=== PATIENT | male | born 1955 | race Caucasian/White ===

== ENCOUNTER 2021-12-22 20:32 | Observation (INO) ==
[2021-12-22 20:52] VITALS: BMI 15.6
--- NOTE | 2021-12-22 21:06 | ED.PDOC ---
General ED Provider: Dr. RADHA RIBEIRO Chief Complaint: Non-specific Complaint Stated Complaint: Extremely poor historian. Patient just at [facility] and released today after a mild stroke ?? Reportedly, was supposed to be admitted to a local halfway, but they would not take him because when admitted to [facility] he had meth on his UDS. ??? Need records from [facility]. Time Seen by Provider: 12/22/21 20:50 Mode of Arrival: Ambulance Information Source: Patient Exam Limitations: No limitations Nursing and Triage Documentation Reviewed and Agree: Yes Does patient meet sepsis criteria?: No System Inflammatory Response Syndrome: Not Applicable Sepsis Protocol: For patient's 13 years and over: Temp is 96.8 and below OR 101 and greater Pulse >90 BPM Resp >20/minute Acutely Altered Mental Status Are patient's symptoms suggestive of a new infection, such as: -Pneumonia -Skin, Soft Tissue -Endocarditis -UTI -Bone, Joint Infection -Implantable Device -Acute Abdominal Infection -Wound Infection -Meningitis -Blood Stream Catheter Infection -Unknown Review of Systems Review Of Systems Constitutional: Reports Weakness Eyes: Reports No symptoms Ears, Nose, Mouth, Throat: Reports No symptoms Respiratory: Reports No symptoms Cardiac: Reports No symptoms GI: Reports No symptoms : Reports No symptoms Musculoskeletal: Reports No symptoms Skin: Reports No symptoms Neurological: Reports No symptoms Endocrine: Reports No symptoms Hematologic/Lymphatic: Reports No symptoms All Other Systems: Reviewed and Negative [facility] Family History (Updated 12/23/21 @ 00:07 by RENETTA BELLE RN) Mother Diabetes BROTHER Cancer Social History (Updated 12/23/21 @ 00:11 by RENETTA BELLE RN) Smoking and tobacco status: Current every day smoker Tobacco: How many years used: 60 (SMOKES A PACK EVERY OTHER DAY) Surgical History (Updated 12/23/21 @ 00:05 by RENETTA BELLE RN) History of hip replacement Physical Exam Physical Exam Appearance: Reports Well-appearing Ill-appearing: None Pain Distress: None Eyes: Reports ALFONZO ENT: Reports Oropharynx normal Neck: Supple Respiratory: Reports Airway patent and Breath sounds clear Cardiovascular: Reports RRR and Pulses normal GI/: Reports Soft and Nontender Musculoskeletal: Reports Limited ROM and Limited strength Skin: Reports Warm and Dry Neurological: Reports Sensation intact, Motor intact and Alert Psychiatric: Reports Affect appropriate and Mood appropriate Interpretation Radiology Interpretation Xray Comments: defer pending reports from [facility] EKG Interpretation Time of EKG #1: 22:36 Rate: Normal Rhythm: Sinus Ectopy: None [place]: NL ST Segment: Other Interpretation: NSSTW changes Critical Care Note Critical Care Note Total Critical Care Time (mins): 0 Course Course Hematology/Chemistry: 12/23/21 05:01 12/23/21 05:01 Orders, Labs, Meds: Lab Review 12/22/21 12/22/21 12/22/21 20:14 20:14 20:48 WBC 9.47 RBC 3.53 L Hgb 11.6 L Hct 35.5 L MCV 100.6 H MCH 32.9 H MCHC 32.7 RDW Coeff of Constanza 14.2 Plt Count 348 Immature Gran % (Auto) 0.2 Neut % (Auto) 64.0 Lymph % (Auto) 25.4 [place] % (Auto) 8.4 Eos % (Auto) 1.7 Baso % (Auto) 0.3 Neut # (Auto) 6.1 Lymph # (Auto) 2.4 [place] # (Auto) 0.8 Eos # (Auto) 0.2 Baso # (Auto) 0.0 Immature Gran # (Auto) 0.0 Sodium 137.0 Potassium 4.60 Chloride 98.0 Carbon Dioxide 34.0 H Anion Gap 9.60 BUN 21.0 H Creatinine 1.10 Estimated GFR (MDRD) 67.00 BUN/Creatinine Ratio 19.09 Glucose 84.0 Calcium 8.40 Total Bilirubin 0.20 AST 24.0 ALT 14.0 Alkaline Phosphatase 89.0 Total Protein 6.50 Albumin 3.50 Globulin 3.00 Albumin/Globulin Ratio 1.16 Urine Color Urine Clarity Urine pH Ur Specific [place] Urine Protein Urine Glucose (UA) Urine Ketones Urine Blood Urine Nitrite Urine Bilirubin Urine Urobilinogen Ur Leukocyte Esterase Urine Microscopic RBC Urine Microscopic WBC Ur Squamous Epith Cells Urine Bacteria Urine Opiates Screen Ur Oxycodone Screen Urine Methadone Screen Ur Propoxyphene Screen Ur Barbiturates Screen U Tricyclic Antidepress Ur Phencyclidine Scrn Ur Amphetamine Screen U Methamphetamines Scrn U Benzodiazepines Scrn Urine Cocaine Screen U Cannabinoids Screen SARS CoV-2 RNA Rapid BONIFACIO Negative 12/22/21 12/22/21 20:48 20:48 WBC RBC Hgb Hct MCV MCH MCHC RDW Coeff of Constanza Plt Count Immature Gran % (Auto) Neut % (Auto) Lymph % (Auto) [place] % (Auto) Eos % (Auto) Baso % (Auto) Neut # (Auto) Lymph # (Auto) [place] # (Auto) Eos # (Auto) Baso # (Auto) Immature Gran # (Auto) Sodium Potassium Chloride Carbon Dioxide Anion Gap BUN Creatinine Estimated GFR (MDRD) BUN/Creatinine Ratio Glucose Calcium Total Bilirubin AST ALT Alkaline Phosphatase Total Protein Albumin Globulin Albumin/Globulin Ratio Urine Color Yellow Urine Clarity Clear Urine pH 7.0 Ur Specific [place] 1.025 Urine Protein 2+ H Urine Glucose (UA) Negative Urine Ketones Negative Urine Blood 1+ H Urine Nitrite Negative Urine Bilirubin Negative Urine Urobilinogen 0.2 Ur Leukocyte Esterase Negative Urine Microscopic RBC 30-50 Urine Microscopic WBC 10-20 Ur Squamous Epith Cells Not present Urine Bacteria 2+ Urine Opiates Screen Negative Ur Oxycodone Screen Negative Urine Methadone Screen Negative Ur Propoxyphene Screen Negative Ur Barbiturates Screen Negative U Tricyclic Antidepress Negative Ur Phencyclidine Scrn Negative Ur Amphetamine Screen Negative U Methamphetamines Scrn Negative U Benzodiazepines Scrn Negative Urine Cocaine Screen Negative U Cannabinoids Screen Negative SARS CoV-2 RNA Rapid BONIFACIO Orders Category Date Time Status EKG-(ED ONLY) Stat CARDIO 12/22/21 21:07 Completed CBC W/ AUTO DIFF Stat LAB 12/22/21 20:14 Completed COMPREHENSIVE METABOLIC PANEL Stat LAB 12/22/21 20:14 Completed DRUG SCREEN, URINE, RAPID Stat LAB 12/22/21 20:48 Completed SARS COV-2 RNA RAPID BONIFACIO Stat LAB 12/22/21 20:48 Completed URINALYSIS C & S IF INDICATED Stat LAB 12/22/21 20:48 Completed URINE CULTURE Stat LAB 12/22/21 20:48 Received CHEST, 1V AP ONLY Stat RADS 12/22/21 21:07 Completed Medications Generic Name Dose Route Start Last Admin Trade Name Freq PRN Reason Stop Dose Admin Amiodarone HCl 200 mg 12/23/21 09:00 Amiodarone Hcl 200 Mg Tablet PO DAILY [facility] Atorvastatin Calcium 40 mg 12/23/21 09:00 Atorvastatin Calcium 20 Mg Tablet PO DAILY [facility] Carvedilol 3.125 mg 12/23/21 09:00 Carvedilol 3.125 Mg Tablet PO DAILY [facility] Enoxaparin Sodium 40 mg 12/23/21 09:00 Enoxaparin Sodium 40 Mg/0.4 Ml Syr SUBCUT DAILY [facility] Furosemide 40 mg 10/15/22 09:00 Furosemide 40 Mg Tablet PO DAILY [facility] Sodium Chloride 1,000 mls @ 75 mls/hr 12/22/21 23:00 12/23/21 00:30 Sodium Chloride IV 75 mls/hr .[id number] [facility] Administration CEFTRIAXONE/D5W 1 GM PREMIX 1 gm in 50 mls @ 75 mls/hr 12/23/21 09:00 Rocephin 1 Gm/50 Ml D5w IV 12/26/21 08:59 DAILY [facility] Sacubitril/Valsartan 1 each 12/23/21 09:00 Sacubitril/Valsartan 1 Each Tablet PO BID [facility] Spironolactone 25 mg 12/23/21 09:00 Spironolactone 25 Mg Tablet PO DAILY [facility] Discontinued Medications Generic Name Dose Route Start Last Admin Trade Name Freq PRN Reason Stop Dose Admin Diphenhydramine HCl 50 mg 12/23/21 05:45 12/23/21 06:15 Diphenhydramine Hcl 25 Mg Capsule PO 12/23/21 05:46 50 mg ONCE ONE Administration Vital Signs: Temp Pulse Resp BP Pulse Ox 12/22/21 20:34 98.6 F 85 20 119/77 98 Discharge Plan Discharge Patient Disposition: PLACED OBSERVATION Did you review [place] HOUSING MANAGEMENT OFFICER?: Not Applicable ED Provider: RADHA RIBEIRO Condition: Fair Physician Progress Note: [UTI, generalized weakness, reported recent mild stroke, homeless, place in obs status.]
[2021-12-22 21:22] LABS: BASOPHILS % (AUTO) 0.3 % (0.0-3.0); EOSINOPHILS # (AUTO) 0.2 K/ul (0.0-0.7); EOSINOPHILS % (AUTO) 1.7 % (0.0-7.0); HEMATOCRIT 35.5 % (42.0-52.0); HEMOGLOBIN 11.6 g/dl (14.0-18.0); IMMATURE GRANULOCYTE % (AUTO) 0.2 % (0.0-5.0); LYMPHOCYTES # (AUTO) 2.4 K/uL (0.60-3.4); LYMPHOCYTES % (AUTO) 25.4 (10.0-50.0); MEAN CORPUSCULAR HEMOGLOBIN 32.9 pg (27.0-31.0); MEAN CORPUSCULAR HGB CONC 32.7 (31.8-35.4); MEAN CORPUSCULAR VOLUME 100.6 fl (80.0-94.0); MONOCYTES # (AUTO) 0.8 K/uL (0.4-2.0); MONOCYTES % (AUTO) 8.4 (0-10); NEUTROPHILS # (AUTO) 6.1 K/ul (2.0-6.9); PLATELET COUNT 348 10^3/uL (140-440); RDW COEFFICIENT OF VARIATION 14.2 % (11.6-14.8); RED BLOOD COUNT 3.53 10^6/ul (4.70-6.10); WHITE BLOOD COUNT 9.47 K/ul (4.2-10.2)
[2021-12-22 21:24] LABS: BILIRUBIN,URINE Negative (NEGATIVE); CLARITY,URINE Clear (CLEAR); COLOR,URINE Yellow (YELLOW); GLUCOSE, URINE (UA) Negative (NEGATIVE); KETONES,URINE Negative (NEGATIVE); LEUKOCYTE ESTERASE ,URINE Negative (NEGATIVE); NITRITE,URINE Negative (NEGATIVE); PROTEIN,URINE 2+ (NEGATIVE); URINE, BLOOD 1+ (NEGATIVE); UROBILINOGEN,URINE 0.2 (0.2)
[2021-12-22 21:25] LABS: SQUAMOUS EPITHELIAL CELL,UR NOT PRESENT (0-5)
[2021-12-22 21:33] LABS: ALBUMIN 3.5 g/dL (3.5-5.0); BILIRUBIN,TOTAL 0.2 mg/dL (0.2-1.3); CALCIUM 8.4 mg/dL (8.4-10.2); CREATININE 1.1 mg/dL (0.60-1.10); POTASSIUM 4.6 mmol/L (3.5-5.1); TOTAL PROTEIN 6.5 g/dL (6.3-8.2)
[2021-12-22 21:34] LABS: AMPHETAMINE SCREEN,URINE NEGATIVE (NEGATIVE); BARBITURATE SCREEN,URINE NEGATIVE (NEGATIVE); BENZODIAZEPINES SCREEN,URINE NEGATIVE (NEGATIVE); CANNABINOID SCREEN,URINE NEGATIVE (NEGATIVE); COCAIN SCREEN,URINE NEGATIVE (NEGATIVE); METHADONE URINE SCREEN NEGATIVE (NEGATIVE); METHAMPHETAMINES SCREEN,URINE NEGATIVE (NEGATIVE); OPIATE SCREEN,URINE NEGATIVE (NEGATIVE); OXYCODONE URINE SCREEN NEGATIVE (NEGATIVE); PHENCYCLIDINE SCREEN,URINE NEGATIVE (NEGATIVE); PROPOXYPHENE URINE SCREEN NEGATIVE (NEGATIVE); TRICYCLIC ANTIDEPRESSANTS URIN NEGATIVE (NEGATIVE); URINE RBC, MICROSCOPIC 30-50 (0-2)
[2021-12-22 21:35] LABS: BACTERIA,URINE 2+ (NOT PRESENT)
--- NOTE | 2021-12-22 21:35 | DI ---
EXAM: AP chest. HISTORY: Chest pain. FINDINGS: The bones are unremarkable. The cardiac silhouette is enlarged. The pulmonary vasculature is within normal limits. The costophrenic angles are clear. There are bilateral emphysematous valdovinos ges. There is minimal right lung atelectasis and/or pneumonia. Impression: Minimal right lung atelectasis and/or pneumonia. Chronic obstructive pulmonary disease. Cardiomegaly.
[2021-12-23] MEDS: SODIUM CHLORIDE 1,000 ML IV SCH ×2 (00:30→12:31)
[2021-12-23 05:07] LABS: BASOPHILS % (AUTO) 0.4 % (0.0-3.0); EOSINOPHILS # (AUTO) 0.2 K/ul (0.0-0.7); EOSINOPHILS % (AUTO) 2.6 % (0.0-7.0); HEMATOCRIT 34.9 % (42.0-52.0); HEMOGLOBIN 11.2 g/dl (14.0-18.0); IMMATURE GRANULOCYTE % (AUTO) 0.1 % (0.0-5.0); LYMPHOCYTES # (AUTO) 2.9 K/uL (0.60-3.4); LYMPHOCYTES % (AUTO) 31.7 (10.0-50.0); MEAN CORPUSCULAR HEMOGLOBIN 32.4 pg (27.0-31.0); MEAN CORPUSCULAR HGB CONC 32.1 (31.8-35.4); MEAN CORPUSCULAR VOLUME 100.9 fl (80.0-94.0); MONOCYTES # (AUTO) 0.9 K/uL (0.4-2.0); MONOCYTES % (AUTO) 9.3 (0-10); NEUTROPHILS # (AUTO) 5.1 K/ul (2.0-6.9); NEUTROPHILS % (AUTO) 55.9 % (42.2-75.2); PLATELET COUNT 325 10^3/uL (140-440); RDW COEFFICIENT OF VARIATION 14.1 % (11.6-14.8); RED BLOOD COUNT 3.46 10^6/ul (4.70-6.10); WHITE BLOOD COUNT 9.17 K/ul (4.2-10.2)
[2021-12-23 05:17] LABS: BLOOD UREA NITROGEN 21.7 mg/dL (9-20); CALCIUM 8.54 mg/dL (8.4-10.2); CARBON DIOXIDE 31.7 mmol/L (22-30.0); CHLORIDE 102.6 mmol/L (98-107); CREATININE 1.07 mg/dL (0.60-1.10); GLUCOSE 95.5 mg/dL (74-106); MAGNESIUM 1.82 mg/dL (1.6-2.3); POTASSIUM 4.64 mmol/L (3.5-5.1); SODIUM 137.9 mmol/L (134.5-145)
[2021-12-23] MEDS ORDERED: BENADRYL PO ONE (05:45)
[2021-12-23] MEDS ORDERED: LASIX TAB PO SCH (09:00)
[2021-12-23] MEDS ORDERED: COREG PO SCH (09:00)
[2021-12-23] MEDS: CORDARONE PO SCH (09:02)
[2021-12-23] MEDS: LIPITOR PO SCH (09:03)
[2021-12-23] MEDS: ALDACTONE PO SCH (09:03)
[2021-12-23] MEDS: ENTRESTO 24 MG-26 MG TABLET PO SCH ×2 (09:03→20:34)
[2021-12-23] MEDS: LOVENOX SUBCUT SCH (09:09)
[2021-12-23] MEDS: ROCEPHIN 1 GM/50 ML D5W 1 GM/50 ML BAG IV SCH (09:53)
--- NOTE | 2021-12-24 00:04 | PCM.PROG ---
Date Seen by Provider: 12/23/21 Time Seen by Provider: 12:05 Subjective: No acute sxs. Pt was sitting comfortably in the bed. Pain-free. Objective: Vitals: T=97.4 F, P=66, R=18, AF=507/74, SPO2=99 HEENT: []wnl Neck: []supple. Lungs: [] chest was clear. CVS: []rrr Abdomen: []benign Extremities: []no acute abnormality Neurological: []non-focal Skin: []wnl Lab/Tests/Diagnostic Imaging: [] (1) Weakness generalized: Status: Acute Code(s): R53.1 - Weakness SNOMED Code(s): 25452551 (2) UTI (urinary tract infection): Status: Acute Code(s): N39.0 - Urinary tract infection, site not specified SNOMED Code(s): 22778695 Plan: Pt for transfer to Rehab facility on 12/24/2021. 2. Continue Tx regimen.
[2021-12-24] MEDS: SODIUM CHLORIDE 1,000 ML IV SCH ×2 (00:36→13:58)
[2021-12-24 05:19] LABS: BASOPHILS % (AUTO) 0.4 % (0.0-3.0); EOSINOPHILS # (AUTO) 0.2 K/ul (0.0-0.7); EOSINOPHILS % (AUTO) 2.4 % (0.0-7.0); HEMATOCRIT 36.1 % (42.0-52.0); IMMATURE GRANULOCYTE % (AUTO) 0.3 % (0.0-5.0); LYMPHOCYTES # (AUTO) 2.8 K/uL (0.60-3.4); LYMPHOCYTES % (AUTO) 28.5 (10.0-50.0); MEAN CORPUSCULAR HEMOGLOBIN 33.3 pg (27.0-31.0); MEAN CORPUSCULAR HGB CONC 33.2 (31.8-35.4); MEAN CORPUSCULAR VOLUME 100.3 fl (80.0-94.0); NEUTROPHILS # (AUTO) 5.8 K/ul (2.0-6.9); NEUTROPHILS % (AUTO) 58.4 % (42.2-75.2); PLATELET COUNT 359 10^3/uL (140-440); RDW COEFFICIENT OF VARIATION 14.1 % (11.6-14.8); WHITE BLOOD COUNT 9.87 K/ul (4.2-10.2)
[2021-12-24 05:28] LABS: BLOOD UREA NITROGEN 21.9 mg/dL (9-20); CALCIUM 8.85 mg/dL (8.4-10.2); CARBON DIOXIDE 27.6 mmol/L (22-30.0); CHLORIDE 103.4 mmol/L (98-107); CREATININE 1.19 mg/dL (0.60-1.10); GLUCOSE 100.9 mg/dL (74-106); POTASSIUM 4.56 mmol/L (3.5-5.1); SODIUM 136.5 mmol/L (134.5-145)
[2021-12-24] MEDS: LASIX TAB PO SCH (05:50)
[2021-12-24] MEDS: ROCEPHIN 1 GM/50 ML D5W 1 GM/50 ML BAG IV SCH (09:29)
[2021-12-24] MEDS: ALDACTONE PO SCH (09:31)
[2021-12-24] MEDS: CORDARONE PO SCH (09:31)
[2021-12-24] MEDS: ENTRESTO 24 MG-26 MG TABLET PO SCH ×2 (09:32→20:24)
[2021-12-24] MEDS: COREG PO SCH (09:32)
[2021-12-24] MEDS: LIPITOR PO SCH (09:33)
[2021-12-24] MEDS: LOVENOX SUBCUT SCH (09:33)
--- NOTE | 2021-12-24 11:31 | PCM.PROG ---
Date Seen by Provider: 12/24/21 Time Seen by Provider: 11:28 Subjective: no new nursing concerns---patient has no complaints Objective: Vitals: T=97.6 F, P=82, R=16, BP=94/66, SPO2=97 HEENT: [] Neck: [supple] Lungs: [clear] CVS: [rrr] Abdomen: [soft nt] Extremities: [] Neurological: [no deformity] Skin: [] Lab/Tests/Diagnostic Imaging: [] (1) Weakness generalized: Status: Acute Code(s): R53.1 - Weakness SNOMED Code(s): 80049774 (2) UTI (urinary tract infection): Status: Acute Code(s): N39.0 - Urinary tract infection, site not specified SNOMED Code(s): 22961470 Plan: labs reviewed==--was supposed to go to [place] today but Gaudencio indicated at [place] was unsure of tranportation---will hold iv and monitor bp--check labs in am
[2021-12-25 05:46] LABS: BASOPHILS # (AUTO) 0.1 K/uL (0-0.2); BASOPHILS % (AUTO) 0.5 % (0.0-3.0); EOSINOPHILS # (AUTO) 0.2 K/ul (0.0-0.7); EOSINOPHILS % (AUTO) 2.6 % (0.0-7.0); HEMATOCRIT 37.1 % (42.0-52.0); HEMOGLOBIN 12.2 g/dl (14.0-18.0); IMMATURE GRANULOCYTE # (AUTO) 0.1 (0.0-1.0); IMMATURE GRANULOCYTE % (AUTO) 0.5 % (0.0-5.0); LYMPHOCYTES # (AUTO) 2.8 K/uL (0.60-3.4); LYMPHOCYTES % (AUTO) 29.7 (10.0-50.0); MEAN CORPUSCULAR HGB CONC 32.9 (31.8-35.4); MEAN CORPUSCULAR VOLUME 100.3 fl (80.0-94.0); MONOCYTES # (AUTO) 0.9 K/uL (0.4-2.0); MONOCYTES % (AUTO) 9.3 (0-10); NEUTROPHILS # (AUTO) 5.3 K/ul (2.0-6.9); NEUTROPHILS % (AUTO) 57.4 % (42.2-75.2); PLATELET COUNT 312 10^3/uL (140-440); RDW COEFFICIENT OF VARIATION 14.1 % (11.6-14.8); WHITE BLOOD COUNT 9.28 K/ul (4.2-10.2)
[2021-12-25] MEDS: LASIX TAB PO SCH (05:50)
[2021-12-25 06:02] LABS: ALANINE AMINOTRANSFERASE 14.8 U/L (0-50); ALBUMIN 3.64 g/dL (3.5-5.0); ALKALINE PHOSPHATASE 94.6 U/L (56-119); BILIRUBIN,TOTAL 0.27 mg/dL (0.2-1.3); BLOOD UREA NITROGEN 24.8 mg/dL (9-20); CALCIUM 8.91 mg/dL (8.4-10.2); CARBON DIOXIDE 31.1 mmol/L (22-30.0); CHLORIDE 99.5 mmol/L (98-107); CREATININE 1.19 mg/dL (0.60-1.10); GLUCOSE 98.4 mg/dL (74-106); POTASSIUM 4.73 mmol/L (3.5-5.1); SODIUM 135.5 mmol/L (134.5-145); TOTAL PROTEIN 7.09 g/dL (6.3-8.2)
[2021-12-25] MEDS ORDERED: SYNTHROID PO SCH (06:30)
[2021-12-25 07:41] VITALS: BP 98/62; TEMP 97.8
[2021-12-25] MEDS: LIPITOR PO SCH (08:57)
[2021-12-25] MEDS: ALDACTONE PO SCH (08:57)
[2021-12-25] MEDS: COREG PO SCH (08:58)
[2021-12-25] MEDS: ENTRESTO 24 MG-26 MG TABLET PO SCH (08:58)
[2021-12-25] MEDS: CORDARONE PO SCH (08:58)
[2021-12-25] MEDS: LOVENOX SUBCUT SCH (09:00)
[2021-12-25] MEDS: ROCEPHIN 1 GM/50 ML D5W 1 GM/50 ML BAG IV SCH (09:28)
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
== END 2021-12-25 14:30 ==
LOC: ED 20:32 → MEDSURG A 20:32
PROVIDERS: ADMIT Emergency Medicine; ATTEND Internal Medicine Geriatric Medicine
DX: Z51.81 Encounter for therapeutic drug level monitoring; E03.9 Hypothyroidism, unspecified; N39.0 Urinary tract infection, site not specified; Z20.822 Contact with and (suspected) exposure to COVID-19; Z59.00 Homelessness unspecified; F17.210 Nicotine dependence, cigarettes, uncomplicated; R53.1 Weakness; Z86.73 Personal history of transient ischemic attack (TIA), and cerebral infarction without residual deficits; Z79.899 Other long term (current) drug therapy; Z79.82 Long term (current) use of aspirin